=== PATIENT | female | born 1955 | race Caucasian/White ===

== ENCOUNTER 2018-10-14 09:39 | Outpatient (CLI) | payer MEDICAID | END 2018-10-14 23:59 | disposition home or self-care (01) | LOC: RAD 09:39 | PROVIDERS: ATTEND Psychiatry & Neurology Neurology | DX: R41.89 Other symptoms and signs involving cognitive functions and awareness (principal); Z87.891 Personal history of nicotine dependence | CPT/HCPCS: 95816 ==